=== PATIENT | female | born 1985 | race African-American/Black ===

== ENCOUNTER 2024-03-10 21:32 | Emergency (ER) | payer SELFPAY ==
[~2024-03-10] VITALS: Ht 165.1 cm; Wt 77.4 kg
[2024-03-10 23:50] VITALS: PULSE 59; RESP 16; O2SAT 100
[2024-03-11 01:16] VITALS: BP 133/95; PULSE 63; RESP 18; TEMP 98.5; O2SAT 94
[2024-03-11 01:41] LABS: Urine Bacteria None Seen /hpf (None Seen)
[2024-03-11 01:50] LABS: Urine Blood Negative /uL (Negative); Urine Clarity Turbid (Clear); Urine Color Yellow (Yellow); Urine Mucus FEW (None Seen); Urine Protein, UAD 1+ (Negative); Urine Specific Gravity 1.026 (1.001-1.035); Urine Urobilinogen Normal (Negative); Urine WBC 10 /hpf (0 - 5)
[2024-03-11] MEDS ORDERED: BACDST PO (02:08)
== END 2024-03-11 02:16 | disposition home or self-care (01) ==
LOC: ER 21:32
DX: N39.0 Urinary tract infection, site not specified (principal)
CPT/HCPCS: 81001

== ENCOUNTER 2024-03-19 09:11 | Emergency (ER) | payer SELFPAY ==
[~2024-03-19] VITALS: Ht 165.1 cm; Wt 76.0 kg
[~2024-03-19 09:11] MED LIST: BACDST PO
[2024-03-19 09:36] VITALS: BP 138/98; PULSE 93; RESP 16; TEMP 98.2; O2SAT 98
[2024-03-19 09:56] LABS: Urine Bacteria FEW /hpf (None Seen); Urine Blood 1+ /uL (Negative); Urine Clarity Clear (Clear); Urine Protein, UAD Negative (Negative); Urine Specific Gravity 1.006 (1.001-1.035); Urine Urobilinogen Normal (Negative); Urine WBC 10 /hpf (0 - 5); Urine pH 5.5 (5.0-9.0)
[2024-03-19 10:20] LABS: Urine Color Light-Yellow (Yellow)
[2024-03-19] MEDS: cefTRIAXone SOD 1,000 MG VL IM ONE (10:38)
[2024-03-19] MEDS ORDERED: NITR-87 PO (10:42)
== END 2024-03-19 10:54 | disposition home or self-care (01) ==
LOC: ER 09:11
DX: N30.00 Acute cystitis without hematuria (principal); Z79.899 Other long term (current) drug therapy
CPT/HCPCS: 81001; 81025; 87086; 96372; 99283; J0696